=== PATIENT | male | born 1970 | race Caucasian/White ===

== ENCOUNTER 2018-08-12 15:50 | Emergency (ER) | payer BC ==
[~2018-08-12] VITALS: Ht 185.4 cm; Wt 88.0 kg
[2018-08-12 16:54] LABS: BASOPHILS # (AUTO) 0.02 x10^3/uL (0-0.1); BASOPHILS % (AUTO) 0 % (0-1); EOSINOPHILS # (AUTO) 0.03 x10^3/uL (0-0.4); EOSINOPHILS % (AUTO) 1 % (1-7); LYMPHOCYTES # (AUTO) 1.49 x10^3/uL (1-3.4); LYMPHOCYTES % (AUTO) 28 % (22-44); MD NO; MEAN CORPUSCULAR HEMOGLOBIN 35.4 pg (27.5-34.5); MEAN CORPUSCULAR HGB CONC 34.1 g/dL (33.2-36.2); MEAN CORPUSCULAR VOLUME 103.8 fL (81-97); MONOCYTES # (AUTO) 0.65 x10^3/uL (0.2-0.8); MONOCYTES % (AUTO) 12 % (2-9); NEUTROPHILS # (AUTO) 3.17 x10^3/uL (1.8-6.8); NEUTROPHILS % (AUTO) 59 % (42-75); PLATELET COUNT 207 x10^3/uL (130-400); RED BLOOD COUNT 4.66 x10^6/uL (4.38-5.82); RED CELL DISTRIBUTION WIDTH 13.9 % (9.4-14.8)
[2018-08-12 17:02] LABS: ALBUMIN 4.6 g/dL (3.4-5.0); ANION GAP 13 mmol/L (5-15); CALCIUM 8.7 mg/dL (8.5-10.1); CHLORIDE 105 mmol/L (98-107)
[2018-08-12 17:14] LABS: ALANINE AMINOTRANSFERASE 65 U/L (12-78); ALKALINE PHOSPHATASE 105 U/L (45-117); BILIRUBIN,TOTAL 0.3 mg/dL (0.2-1.0); CREATININE 0.81 mg/dL (0.7-1.3); TOTAL PROTEIN 8.5 g/dL (6.4-8.2)
[2018-08-12 17:39] VITALS: BP 133/95
== END 2018-08-12 18:16 | disposition home or self-care (01) ==
LOC: ED 18:00
DX: F10.220 Alcohol dependence with intoxication, uncomplicated (principal); I10 Essential (primary) hypertension; Z79.899 Other long term (current) drug therapy
CPT/HCPCS: 36415; 80053; 80307; 83690; 85025; 93005; 99285

== ENCOUNTER 2020-01-08 15:37 | Emergency (ER) | payer BC, OTHER ==
[~2020-01-08] VITALS: Ht 182.9 cm; Wt 90.0 kg
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
[2020-01-08 16:32] LABS: BASOPHILS # (AUTO) 0.04 x10^3/uL (0-0.1); BASOPHILS % (AUTO) 1 % (0-1); EOSINOPHILS # (AUTO) 0.01 x10^3/uL (0-0.4); EOSINOPHILS % (AUTO) 0 % (1-7); LYMPHOCYTES # (AUTO) 0.93 x10^3/uL (1-3.4); LYMPHOCYTES % (AUTO) 19 % (22-44); MD NO; MEAN CORPUSCULAR HEMOGLOBIN 35.5 pg (27.5-34.5); MEAN CORPUSCULAR HGB CONC 33.6 g/dL (33.2-36.2); MEAN CORPUSCULAR VOLUME 105.7 fL (81-97); MEAN PLATELET VOLUME 7.8 fL (7.4-10.4); MONOCYTES # (AUTO) 0.57 x10^3/uL (0.2-0.8); MONOCYTES % (AUTO) 12 % (2-9); NEUTROPHILS # (AUTO) 3.38 x10^3/uL (1.8-6.8); NEUTROPHILS % (AUTO) 68 % (42-75); PLATELET COUNT 171 x10^3/uL (130-400); RED BLOOD COUNT 4.15 x10^6/uL (4.38-5.82); RED CELL DISTRIBUTION WIDTH 13.7 % (9.4-14.8)
[2020-01-08 16:33] VITALS: BP 121/60
--- NOTE | 2020-01-08 16:33 | NUR ---
PT LAYING IN [facility]. RESTING. NO NEEDS AT THIS TIME
[2020-01-08 16:45] LABS: ALANINE AMINOTRANSFERASE 99 U/L (12-78); ALBUMIN 3.6 g/dL (3.4-5.0); ANION GAP 7 mmol/L (5-15); CHLORIDE 110 mmol/L (98-107); CREATININE 0.83 mg/dL (0.7-1.3)
[2020-01-08 16:50] LABS: ALKALINE PHOSPHATASE 122 U/L (45-117); BILIRUBIN,TOTAL 0.3 mg/dL (0.2-1.0); TROPONIN I < 0.015 ng/mL (0.000-0.045)
--- NOTE | 2020-01-08 17:46 | NUR ---
SPOKE WITH ON PHONE. SHE WILL PICK HIM UP WHEN HE IS READY
--- NOTE | 2020-01-08 18:20 | NUR ---
TOOK PT FOR ROAD TEST. PT AMBULATED SAFELY AROUND UNIT WITHOUT ASSITANCE AND WITHOUT USING HANDRAILS OR WALL FOR SUPPORT. ALSO GAVE PT INFO FOR [facility] THAT HE CAN GO TO RIGHT NOW. CALLED AND SHE IS ON THE WAY TO PICK HIM UP
== END 2020-01-08 19:05 | disposition home or self-care (01) ==
LOC: ED 18:48
DX: F10.220 Alcohol dependence with intoxication, uncomplicated (principal); I10 Essential (primary) hypertension; Y90.0 Blood alcohol level of less than 20 mg/100 ml
CPT/HCPCS: 36415; 80053; 80307; 83690; 84484; 85025; 93005; 99284

== ENCOUNTER 2020-07-05 21:57 | Emergency (ER) | payer OTHER ==
[2020-07-05] MEDS ORDERED: ONDANSETRON 2MG/ML, 2ML ONE (22:19)
[2020-07-05] MEDS ORDERED: LORazepam 2 MG/ML, 1ML ONE (22:19)
[2020-07-05] MEDS ORDERED: LORazepam 2 MG/ML, 1ML IVPush PRN (22:30)
[2020-07-05] MEDS ORDERED: SODIUM CHLORIDE FLUSH 10ML SYR IVF ONE (22:30)
[2020-07-05] MEDS ORDERED: LORazepam 2 MG/ML, 1ML IVPush ONE (22:30)
[2020-07-05] MEDS ORDERED: MAGNESIUM SULFATE 1 GM, THIAMINE 100 MG, FOLIC ACID 1 MG, MVI ADULT 10 ML in SODIUM CHL... IV ONE (22:30)
[2020-07-05] MEDS ORDERED: ONDANSETRON 2MG/ML, 2ML IVPush ONE (22:30)
[2020-07-05] MEDS ORDERED: SODIUM CHLORIDE 0.9% 1,000ML IVBOLUS ONE (22:30)
--- NOTE | 2020-07-05 22:44 | NUR ---
PRIOR TO MEDICATING PT, PT WAS SLEEPING AND HEART RATE HAD DECREASED TO WITHIN NORMAL LIMITS. UPON WAKING PT TO MEDICATE, PT STARTED MILDLY THRASHING IN BED AND SAYING HE WANTED A DRINK. PT MEDICATED AND NOW RESTING IN BED, NO COMPLAINTS AT THIS TIME.
--- NOTE | 2020-07-05 22:56 | NUR ---
ELVIN OLIVIA FROM PHARMACY
[2020-07-05 23:02] LABS: ALANINE AMINOTRANSFERASE 136 U/L (12-78); ALBUMIN 3.5 g/dL (3.4-5.0); ANION GAP 16 mmol/L (5-15); CALCIUM 7.4 mg/dL (8.5-10.1); CHLORIDE 109 mmol/L (98-107); CREATININE 0.75 mg/dL (0.7-1.3)
[2020-07-05 23:07] LABS: ALKALINE PHOSPHATASE 88 U/L (45-117); BILIRUBIN,TOTAL 0.7 mg/dL (0.2-1.0); TOTAL PROTEIN 6.4 g/dL (6.4-8.2); TROPONIN I < 0.015 ng/mL (0.000-0.045)
[2020-07-05 23:33] LABS: BASOPHILS # (AUTO) 0.01 x10^3/uL (0-0.1); BASOPHILS % (AUTO) 0 % (0-1); EOSINOPHILS # (AUTO) 0.02 x10^3/uL (0-0.4); EOSINOPHILS % (AUTO) 0 % (1-7); LYMPHOCYTES # (AUTO) 1.03 x10^3/uL (1-3.4); LYMPHOCYTES % (AUTO) 20 % (22-44); MD SCAN; MEAN CORPUSCULAR HEMOGLOBIN 34.4 pg (27.5-34.5); MEAN CORPUSCULAR HGB CONC 33.1 g/dL (33.2-36.2); MEAN CORPUSCULAR VOLUME 103.8 fL (81-97); MEAN PLATELET VOLUME 8.8 fL (7.4-10.4); MONOCYTES # (AUTO) 0.35 x10^3/uL (0.2-0.8); MONOCYTES % (AUTO) 7 % (2-9); NEUTROPHILS # (AUTO) 3.66 x10^3/uL (1.8-6.8); NEUTROPHILS % (AUTO) 72 % (42-75); PLATELET COUNT 86 x10^3/uL (130-400); RED BLOOD COUNT 4.22 x10^6/uL (4.38-5.82); RED CELL DISTRIBUTION WIDTH 16.5 % (9.4-14.8)
[2020-07-05 23:54] VITALS: BP 106/68
--- NOTE | 2020-07-06 00:10 | NUR ---
PT PROVIDED FOOD AND OJ TO RAISE BLOOD SUGAR AT THIS TME.
--- NOTE | 2020-07-06 02:53 | NUR ---
PT STILL UNABLE TO AMBULATE AT THIS TIME. PT CONNECTED TO MONITORS, IV INFUSING. WILL CONTINUE TO MONITOR
--- NOTE | 2020-07-06 04:37 | NUR ---
ATTEMPTED TO AMBULATE PT, UNSUCCESSFUL.
--- NOTE | 2020-07-06 06:28 | NUR ---
PT AMBULATED TO DC DESK WITH STEADY GAIT
== END 2020-07-06 06:30 | disposition home or self-care (01) ==
LOC: ED 07-06 02:19
DX: F10.220 Alcohol dependence with intoxication, uncomplicated (principal); R07.89 Other chest pain; I10 Essential (primary) hypertension; I49.3 Ventricular premature depolarization; J69.0 Pneumonitis due to inhalation of food and vomit; Z72.9 Problem related to lifestyle, unspecified; Y90.0 Blood alcohol level of less than 20 mg/100 ml
CPT/HCPCS: 36415; 71045; 80053; 80307; 82962; 83690; 84484; 85025; 93005; 96365; 96366; 96375; 99285; J2060; J2405; J3411; J3475; J7030